=== PATIENT | female | born 1955 | race Caucasian/White ===

== ENCOUNTER → 2021-08-13 12:59 | Outpatient (CLI) | payer MEDICARE, SELFPAY ==
--- NOTE | ~2021-08-13 | US_ITS ---
EXAMINATION: US thyroid DATE: 08/13/2021 13:17 INDICATION: Nontoxic single thyroid nodule. TECHNIQUE: Multiple ultrasound images of the thyroid were obtained. COMPARISON: None. FINDINGS: The right thyroid lobe measures 4.4 x 1.2 x 1.2 cm. The left thyroid lobe measures 3.6 x 0.9 x 1.0 c m. In the left thyroid lobe, there is a 3 mm nodule. In the right thyroid lobe, there is a 10 mm cindy d, hypoechoic, hcmsd-jwak-htsh than tall nodule with smooth margin without echogenic foci (TI-RADS TR 4). In the right thyroid lobe, there is a 4 mm nodule. IMPRESSION: 1. Thyroid nodules. The patient reports a history of a benign thyroid nodule biopsy. Given this histo ry, follow-up is likely not needed. Reviewed, dictated and finalized at location A. IMPRESSION: 1. Thyroid nodules. The patient reports a history of a benign thyroid nodule bi opsy. Given this history, follow-up is likely not needed.
== END ==
PROVIDERS: PCP Family Medicine Adolescent Medicine; Visit Provider Family Medicine Adolescent Medicine
DX: E04.1 Nontoxic single thyroid nodule (principal)
CPT/HCPCS: 76536

== ENCOUNTER 2021-11-17 09:32 | Outpatient (CLI) | payer MEDICARE, SELFPAY ==
--- NOTE | ~2021-11-17 | MM_ITS ---
EXAMINATION: MM screening [facility] BI w leonela HISTORY: Screening TECHNIQUE: Craniocaudal and mediolateral oblique 3-D tomosynthesis images were obtained and synthetic 2-D images were generated. CAD analysis was submitted and interpreted. COMPARISON: 07/18/2018 BREAST PARENCHYMAL COMPOSITION: There are scattered areas of fibroglandular density. FINDINGS: The right breast is stable without evidence for malignancy. There is a developing 7 mm mass in the lower central aspect of the left breast. The right breast is stable without evidence for parisa gnancy. IMPRESSION: 1. New left breast mass, lower central aspect. 2. Additional mammographic views and possible breast ultrasound are recommended. BI-RADS Category 0: Incomplete: Needs additional imaging evaluation. Reviewed, dictated and finalized at location A. IMPRESSION: 1. New left breast mass, lower central aspect. 2. Additional mammographic views and possible breast ultrasound are recommended . BI-RADS Category 0: Incomplete: Needs additional imaging evaluation.
== END 2021-11-17 09:33 | disposition home or self-care (01) ==
LOC: ANHIMG 09:34
PROVIDERS: PCP Family Medicine Adolescent Medicine; Visit Provider Family Medicine Adolescent Medicine
DX: Z12.31 Encounter for screening mammogram for malignant neoplasm of breast (principal); R92.8 Other abnormal and inconclusive findings on diagnostic imaging of breast
CPT/HCPCS: 77063; 77067

== ENCOUNTER 2021-11-24 01:17 | Day surgery (SDC) | payer MEDICARE, SELFPAY ==
[2021-11-10 14:44] VITALS: BMI 28.5
[2021-11-24 07:10] VITALS: BP 139/71; PULSE 79; RESP 20; TEMP 36.2; O2SAT 98; BMI 28.5
[2021-11-24] MEDS: LACTATED RINGERS 1,000 ML 150 ML IV CONT (07:14)
--- NOTE | 2021-11-24 07:25 | PM.IMHP ---
H&P: HPI History of Present Illness Date/Time: 11/24/21 07:25 Chief Complaint: Neoplasia screening. Narrative: This is a 66-year-old white female patient presents for screening colonoscopy. Patient states her current weight appetite and bowel movements are normal. She denies abdominal pain. She has had no bleeding. Family history is noncontributory. Patient's last colonoscopy 2011 we will field benign hyperplastic colon polyp. Review of Systems Review of Systems: Review of systems noncontributory. [facility] Past Medical History Medical History (Updated 11/24/21 @ 07:27 by Juan Diaz MD) Abnormal colonoscopy 06/06 polyps Surgical History Surgical History (Updated 04/21/21 @ 10:07 by Miguel Mccrary MD) History of cholecystectomy 2007 History of thyroid surgery Removal of benign nodule in Social History Social History (Updated 04/21/21 @ 09:39 by Tessa Persaud MA) Smoking status: Never smoker Second hand tobacco smoke exposure: No Alcohol intake: current Drinks per week: 2 Substance use: never Substance use type: does not use Living arrangements: with family Gender identity (if verbalized by the patient): Female Sexual Orientation (if Verbalized by the Patient): Straight or Heterosexual Spiritual care concerns: No Agree to blood products: Yes Meds Home Medications and Allergies Allergies Allergy/AdvReac Type Severity Reaction Status Date / Time No Known Allergies Allergy Unknown Verified 11/24/21 07:09 Vital Signs Vital Signs - 24 hr 11/24/21 07:10 Temperature 97.2 F L Pulse Rate 79 Respiratory Rate 20 Blood Pressure 139/71 Pulse Oximetry 98 Oxygen Delivery Room Air Exam Narrative: Physical exam reveals patient to be alert. Vital signs stable. HEENT exam is unremarkable. Patient is anicteric. Lungs are clear to auscultation and percussion. Heart is without murmur or extra sounds. Abdominal exam bowel sounds present soft nontender with no organomegaly. Digital external rectal exam is normal. Assessment and Plan Assessment and plan (1) Encounter for screening colonoscopy: Code(s): Z12.11 - Encounter for screening for malignant neoplasm of colon Status: Acute Assessment and Plan: Patient presents today for screening colonoscopy. She appears to be at average risk for colon polyps.
--- NOTE | 2021-11-24 08:34 | P.PNAN_ITS ---
Anes - Initial Pre Proc Eval Procedure: Operation Date: 11/24/21 08:30 Proposed Procedures p Screening Colonoscopy - Juan Diaz MD Date/Time: 11/24/21 08:34 Surgeon: Juan Diaz MD Pre Op Diagnosis: neoplasm screening Patient Data Age: 66 Gender: F Height: 1.6 m Weight: 73 kg Last Vital Signs Temp 97.2 F L 11/24/21 07:10 Pulse 79 11/24/21 07:10 Resp 20 11/24/21 07:10 BP 139/71 11/24/21 07:10 Pulse Ox 98 11/24/21 07:10 O2 Del Method Room Air 11/24/21 07:10 Allergies Allergy/AdvReac Type Severity Reaction Status Date / Time No Known Allergies Allergy Unknown Verified 11/24/21 07:09 Patient hx anesthesia problems: none Family hx anesthesia problems: none Results Review: All pre-operative results and documents have been reviewed as part of the pre- operative evaluation. [facility] Past Medical History Medical History (Updated 11/24/21 @ 07:27 by Juan Diaz MD) Abnormal colonoscopy 06/06 polyps Surgical History Surgical History (Updated 04/21/21 @ 10:07 by Miguel Mccrary MD) History of cholecystectomy 2007 History of thyroid surgery Removal of benign nodule in Social History Social History (Updated 04/21/21 @ 09:39 by Tessa Persaud MA) Smoking status: Never smoker Second hand tobacco smoke exposure: No Alcohol intake: current Drinks per week: 2 Substance use: never Substance use type: does not use Living arrangements: with family Gender identity (if verbalized by the patient): Female Sexual Orientation (if Verbalized by the Patient): Straight or Heterosexual Spiritual care concerns: No Agree to blood products: Yes Anes - Eval Final PreProcedure Day of Procedure 11/24/21 08:34 Patient weight: overweight Heart: regular rate and rhythm Lungs: clear to auscultation Airway: Mallampati scale class II Neurological: alert and oriented Last oral intake: >/= 8 hours ASA classification: II Emergent: no Anesthetic plan: proceed Anesthesia type and monitoring: general GIVS and standard monitoring Results Review: All pre-operative results and documents have been reviewed as part of the pre- operative evaluation. Informed Consent: The patient's anesthetic plan and its attendant risks and benefits were discussed with the patient/family/POA. Questions were solicited and answers provided to the satisfaction of the patient/family/POA.
[2021-11-24] MEDS: SIMETHICONE ORAL SUSPENSION 20 MG/0.3 ML 30 ML BOTTLE 0.6 ML IRRIGATION (09:07)
[2021-11-24 09:20] VITALS: BP 132/69; PULSE 73; RESP 18; O2SAT 99
[2021-11-24 09:30] VITALS: BP 136/87; PULSE 74; RESP 16; O2SAT 99
[2021-11-24 09:40] VITALS: BP 131/76; PULSE 68; RESP 17; O2SAT 100
== END 2021-11-24 09:45 | disposition home or self-care (01) ==
PROVIDERS: PCP Family Medicine Adolescent Medicine; Visit Provider Internal Medicine Gastroenterology
PROC: 0DJD8ZZ Inspection of Lower Intestinal Tract, Via Natural or Artificial Opening Endoscopic (ICD-10-PCS; CPT 45378; principal; 2021-11-24 08:30)
DX: Z12.11 Encounter for screening for malignant neoplasm of colon (principal); K64.8 Other hemorrhoids; K57.30 Diverticulosis of large intestine without perforation or abscess without bleeding; K63.5 Polyp of colon; Z90.49 Acquired absence of other specified parts of digestive tract
CPT/HCPCS: 45385; 88305; J2704; J7120

== ENCOUNTER 2021-12-01 13:13 | Outpatient (CLI) | payer MEDICARE, SELFPAY ==
--- NOTE | ~2021-12-01 | MMUS_ITS ---
EXAMINATION: MM diagnostic nuno LT w leonela, US breast LT limited HISTORY: TECHNIQUE: Additional 3-D tomosynthesis images of were performed and synthetic 2-D images were genera binta. CAD analysis was submitted and interpreted. High resolution breast ultrasound was performed. COMPARISON: None FINDINGS: MAMMOGRAPHIC FINDINGS: 7 mm circumscribed opacity is noted in the lower mid left breast (craniocaudal spot leonela image 13/79) . ULTRASOUND: .. 6:00: Approximately 5 mm septated cyst, without internal vascularity or posterior shadowing 4:00: 13 x 5 x 11 mm circumscribed parallel hyperechoic lesion consistent with small lipoma. No suspicious mass or shadowing is detected. IMPRESSION: 1. Benign findings 2. Routine annual mammographic screening is recommended BI-RADS Category 2: Benign finding(s). Reviewed, dictated and finalized at location A. IMPRESSION: 1. Benign findings 2. Routine annual mammographic screening is recommended BI-RADS Category 2: Benign finding(s).
== END 2021-12-01 13:14 | disposition home or self-care (01) ==
PROVIDERS: PCP Family Medicine Adolescent Medicine; Visit Provider Family Medicine Adolescent Medicine
DX: R92.8 Other abnormal and inconclusive findings on diagnostic imaging of breast (principal)
CPT/HCPCS: 76642; 77061; 77065; G0279

== ENCOUNTER 2022-01-19 17:03 | Emergency (ER) | payer MEDICARE, SELFPAY ==
--- NOTE | ~2022-01-19 | XR_ITS ---
XR toe 5th LT min 2V DATE: 01/19/2022 17:16 INDICATION: Stubbed toe TECHNIQUE: 3 views COMPARISON: None FINDINGS: There is a comminuted intraarticular fracture of the head and neck of the proximal phalanx, without significant displacement or angulation. Plantar calcaneal enthesopathy. IMPRESSION: Comminuted intraarticular fracture of head and neck of proximal phalanx Reviewed, dictated and finalized at location A. IMPRESSION: Comminuted intraarticular fracture of head and neck of proximal pha lanx
--- NOTE | 2022-01-19 17:06 | ED.LOWEXIN ---
HPI - Extremity Injury (Lower) General Chief Complaint: Extremity Injury, Lower Stated Complaint: lt foot pinky toe injury Time Seen by Provider: 01/19/22 17:06 Source: patient and RN notes reviewed History of Present Illness HPI Narrative: Patient is a 66-year-old female who presents to urgent care with complaints of left pinky toe pain after stepping on her bed frame this evening approximately 1 hour prior to arrival. Patient has not taken anything for her pain. Patient states the pain is worse with ambulation and weight-bearing. No other acute complaints. No acute distress noted. Patient aware of the plan of care. Some parts of this dictation were generated by voice recognition software and may contain typographical and/or grammatical inaccuracies. Related Data Home Medications Medication Instructions Recorded Confirmed No Home Medications 12/24/21 12/24/21 Allergies Allergy/AdvReac Type Severity Reaction Status Date / Time No Known Allergies Allergy Unknown Verified 11/24/21 07:09 Review of Systems Review of Systems: CONSTITUTIONAL: Denies fever, chills, or sweats. EYES: Denies visual changes, redness, or discharge. ENT: Denies rhinorrhea, congestion, sore throat, or otalgia. CARDIOVASCULAR: Denies chest pain, palpitations, or edema. RESPIRATORY: Denies cough or dyspnea. GASTROINTESTINAL: Denies abdominal pain, nausea, vomiting, or diarrhea. GENITOURINARY: Denies dysuria or hematuria. SKIN: Denies rash or itching. MUSCULOSKELETAL: Reports pain and swelling to the left pinky toe NEUROLOGIC: Denies headache, numbness, or weakness. All other systems reviewed are negative, except as documented in HPI. [facility] Past Medical History Medical History Abnormal colonoscopy 06/06 polyps Surgical History Surgical History History of cholecystectomy 2008 History of thyroid surgery Removal of benign nodule in Family History Family History Mother Rheumatoid arthritis Social History Social History Smoking status: Never smoker Second hand tobacco smoke exposure: No Alcohol intake: current Drinks per week: 2 Substance use: never Substance use type: does not use Gender identity (if verbalized by the patient): Female Sexual Orientation (if Verbalized by the Patient): Straight or Heterosexual Spiritual care concerns: No Agree to blood products: Yes Comments At the time of my signature, I reviewed and agree with the nursing past medical, surgical, social, and family history. There is no relevant family history pertinent to the patient complaint. Exam Narrative: GENERAL: This is a well-nourished, well-developed patient, in no apparent distress. HEAD: normocephalic, atraumatic. EYES: PERRL. Sclera clear/white. Vision is grossly intact. EARS: External ears normal NOSE: External nose normal with no obvious nasal discharge, nares without redness, no rhinorrhea. THROAT: Mucous membranes moist NECK: Neck supple SKIN: warm, intact with no suspicious lesions or rash, good texture and turgor. NEURO: awake, alert, and oriented to person, place and time. There were no obvious focal neurologic abnormalities. EXTREMITIES: Mild erythema and edema noted to the left stat toe with moderate tenderness. No obvious deformity to left lower extremity. Passive strong pedal pulses capillary refill less than 2 seconds. Range of motion left lower extremity within normal limits. Course Course Level of Care: Express Care Visit Vital Signs Vital signs: Vital Signs Temperature 99.1 F 01/19/22 17:10 Pulse Rate 84 01/19/22 17:10 Respiratory Rate 16 01/19/22 17:10 Blood Pressure 155/78 H 01/19/22 17:10 Pulse Oximetry 99 01/19/22 17:10 Oxygen Delivery Room Air 01/19/22 17:10 Temperature 99.1 F 01/19/22
[2022-01-19 17:10] VITALS: BP 155/78; PULSE 84; RESP 16; TEMP 37.3; O2SAT 99
== END 2022-01-19 17:38 | disposition home or self-care (01) ==
PROVIDERS: Emergency Provider Nurse Practitioner Family; PCP Family Medicine Adolescent Medicine
DX: S92.515A Nondisplaced fracture of proximal phalanx of left lesser toe(s), initial encounter for closed fracture (principal); W22.03XA Walked into furniture, initial encounter
CPT/HCPCS: 73660; 99214; G0463

== ENCOUNTER 2023-06-06 09:01 | Outpatient (CLI) | payer MEDICARE, SELFPAY ==
--- NOTE | ~2023-06-06 | MM_ITS ---
EXAMINATION: MM screening [facility] BI w leonela HISTORY: Screening mammogram TECHNIQUE: Craniocaudal and mediolateral oblique 3-D tomosynthesis images were obtained and synthetic 2-D images were generated. CAD analysis was submitted and interpreted. COMPARISON: 12/01/2021, 11/17/2021, 07/18/2018 BREAST PARENCHYMAL COMPOSITION:Not Dense. There are scattered areas of fibroglandular density. FINDINGS: No suspicious mass, calcification, or architectural distortion are identified in either edwige ast to suggest malignancy. There has been no suspicious interval change. IMPRESSION: No mammographic evidence of malignancy. Recommend routine screening mammography in one year. BI-RADS Category 1: Negative Reviewed, dictated and finalized at location .
== END 2023-06-06 09:02 | disposition home or self-care (01) ==
LOC: ANHIMG 09:04
PROVIDERS: PCP Family Medicine Adolescent Medicine; Visit Provider Family Medicine Adolescent Medicine
DX: Z12.31 Encounter for screening mammogram for malignant neoplasm of breast (principal)
CPT/HCPCS: 77063; 77067

== ENCOUNTER 2024-07-24 09:10 | Outpatient (CLI) | payer MEDICARE, SELFPAY ==
--- NOTE | ~2024-07-24 | US_ITS ---
US abdomen limited INDICATION: Liver disease. Liver cyst. PROCEDURE: Realtime right upper abdominal ultrasound. COMPARISON: No prior studies for comparison. FINDINGS: The pancreas is normal without focal mass or pancreatic ductal dilation. Liver echotexture is increased, consistent with fatty infiltration. There is normal directional flow in the portal ve in. There are multiple liver cysts, largest measuring 6.5 cm. IMPRESSION: 1: Liver cysts, largest measuring 6.5 cm. 2: Fatty infiltration of the liver. Reviewed, dictated and finalized at location A.
--- NOTE | ~2024-07-24 | US_ITS ---
EXAMINATION: US thyroid DATE: 07/24/2024 09:33 INDICATION: Nontoxic single thyroid nodule TECHNIQUE: Multiple ultrasound images of the thyroid were obtained. COMPARISON: 08/13/2021 FINDINGS: The right thyroid lobe measures 4.1 x 1.4 x 1.0 cm. The left thyroid lobe measures 3.6 x 1.1 x 0.9 c m. No change in size of a 1.0 cm nodule at the superior right thyroid lobe which is wider than tall with smooth margins but now appears distinctly spongiform with posterior acoustic enhancement (TI-RAD S 1, benign, no FNA recommended). There are a couple 6 mm solid wider than tall hypoechoic nodules in both the left and right thyroid lobes which are without echogenic foci and with smooth margins (TI-R ADS 4, moderately suspicious , FNA if >=1.5 cm, annual followup is >=1 cm). There is normal echotextu re, echogenicity and vascular flow throughout the surrounding thyroid gland. IMPRESSION: 1. Small bilateral thyroid nodules, none meeting criteria for either biopsy or follow-up. Reviewed, dictated and finalized at location B.
== END 2024-07-24 09:11 | disposition home or self-care (01) ==
LOC: MICIMG 09:11
PROVIDERS: PCP Family Medicine Adolescent Medicine; Visit Provider Family Medicine
DX: K76.89 Other specified diseases of liver (principal); E04.2 Nontoxic multinodular goiter
CPT/HCPCS: 76536; 76705

== ENCOUNTER 2024-07-27 09:57 | Outpatient (CLI) | payer MEDICARE, SELFPAY ==
--- NOTE | ~2024-07-27 | CT_ITS ---
Clinical Indication: Abnormal findings of blood chemistry CT Scan of the Chest with Contrast: Technique: Contiguous sections were acquired throughout the chest after intravenous administration of 100 cc of Omnipaque 350. Dose reduction technique was used on this scan by utilizing automated expos ure control and iterative reconstruction technique. The dose-length product (DLP) was 341.02 mGy-cm. Findings: There is no evidence of any significant mediastinal, hilar or axillary lymphadenopathy. There is no f illing defect in the pulmonary arterial tree to suggest pulmonary embolus. There is no evidence of ao rtic dissection or aneurysm. There is no evidence of pleural or pericardial effusion. The lungs are clear. No pulmonary nodules or infiltrates are noted. Images through the upper abdomen reveal no abnormalities. Impression: No evidence of pulmonary embolus, aortic dissection, or aortic aneurysm. Clear lungs. Reviewed, dictated and finalized at [facility]. Impression: No evidence of pulmonary embolus, aortic dissection, or aortic aneurysm. Clear lungs.
--- OUTSIDE RECORDS SUMMARY | 2024-07-28 11:42 | XMS_ITS | Clinical Summary ---
Author Organization [facility] Address [address] [address] Care Team Providers Care Men'S Locker Room Attendant Name Role Phone Miguel Mccrary MD Primary Care Provider + Source Comments [facility],non-owned Affiliates and Associated Physician Practices is amultiple site organization consisting of ambulatory clinics and hospital sitesin [place], [place], [place] and [place]. This disclosure is being madepursuant to the Care Everywhere program and may not contain all information available regarding this patient. Last updated 17[employer] [facility] Allergies No known active allergies Medications * Be aware that medications may not be up to date on this document. Alwaysverify current medications with the patient. No known medications Social History Tobacco Use Types Packs/Day Years Used Date Smoking Tobacco: Never Smokeless Tobacco: Never Comments Unknown Sex and Gender Information Value Date Recorded Sex Assigned at Not on file Legal Sex Female 8:06 AM ASSOCIATE FIELD SERVICE ENGINEER Gender Identity Not on file Sexual Orientation Not on file Last Filed Vital Signs Vital Sign Reading Time Taken Comments Blood Pressure 122/74 03/16/2017 6:22 PM ASSOCIATE FIELD SERVICE ENGINEER Pulse 86 03/16/2017 6:22 PM ASSOCIATE FIELD SERVICE ENGINEER Temperature 36.8 C (98.3 F) 03/16/2017 6:22 PM ASSOCIATE FIELD SERVICE ENGINEER Respiratory Rate 16 03/16/2017 6:22 PM ASSOCIATE FIELD SERVICE ENGINEER Oxygen Saturation 99% 03/16/2017 6:22 PM ASSOCIATE FIELD SERVICE ENGINEER Inhaled Oxygen Concentration - - Weight 70.8 kg (156 lb) 03/16/2017 6:22 PM ASSOCIATE FIELD SERVICE ENGINEER Height 162.6 cm (5' 4 ) 03/16/2017 6:22 PM ASSOCIATE FIELD SERVICE ENGINEER Body Mass Index 26.78 03/16/2017 6:22 PM ASSOCIATE FIELD SERVICE ENGINEER Plan of Treatment Health Maintenance Due Date Last Done Comments BONE DENSITY TESTING 1954 COLOGUARD (AGES 45-75) - COL ON CA SCREENING 1954 COLON MONITORING 1954 COLONOSCOPY - COLON CA SCREENING 1954 CT COLONOGRAPHY - COLON CA SCREENING 1954 Colorectal Cancer Screening 1954 FIT - COLON CA SCREENING 1954 FLEX SIG - COLON CA SCREENING 1954 LIPID TESTING 1954 MAMMOGRAM 1954 HEPATITIS C SCREENING 06/21/1972 DTAP/TDAP/TD VACCINES (1 - Tdap) 1973 PNEUMOCOCCAL VACCINE 50+ (1 of 1 - PCV) 2004 ZOSTER VACCINE (1 of 2) 2004 SCREENING FOR DIABETES 03/16/2017 COVID-19 VACCINE ( - 2023-2 5 season) 2023 DEPRESSION SCREENING 03/28/2024 INFLUENZA VACCINE (Season Ended) 2024 Respiratory Syncytial Virus (RSV) Vaccine Pt: or over 60 yrs (1 - 1-dose 75+ series) 2029 HEPATITIS B VACCINE Aged Out No longe r eligible based on patient's age to complete this topic HIB VACCINE Aged Out No longer eligi ble based on patient's age to complete this topic HPV VACCINE Aged Out No longer eligi ble based on patient's age to complete this topic MENINGOCOCCAL (Group B) VACC INE SHARED DECISION-MAKING Aged Out No longer eligibl e based on patient's age to complete this topic MENINGOCOCCAL GROUPS A/C/Y/W VACCINE Aged Out No longer eligible b ased on patient's age to complete this topic Insurance [employer] Care Teams Men'S Locker Room Attendant Relationship Specialty Start Date End Date Miguel Mccrary MD [id number] [facility] [address] [place] [address] PCP - General Family Medicine 03/16/17
== END 2024-07-27 09:58 | disposition home or self-care (01) ==
PROVIDERS: PCP Family Medicine Adolescent Medicine; Visit Provider Family Medicine
DX: R79.89 Other specified abnormal findings of blood chemistry (principal); R06.02 Shortness of breath
CPT/HCPCS: 71275; Q9967

== ENCOUNTER 2024-08-27 14:48 | Outpatient (CLI) | payer MEDICARE, SELFPAY ==
--- NOTE | ~2024-08-27 | MM_ITS ---
EXAMINATION: screening [facility] BI w leonela INDICATION: Asymptomatic, referred for screening mammogram COMPARISON: 06/06/2023 TECHNIQUE: Digital breast tomosynthesis craniocaudal and mediolateral oblique views of Both breasts w ere obtained with computer-aided detection to assist in interpretation of the study. FINDINGS: There are scattered areas of fibroglandular density. No focal dominant mass, architectural distortion, or suspicious microcalcifications are identified. There are no features to suggest malignancy. IMPRESSION: No evidence of malignancy in the breast. Recommend continued screening mammography BI-RADS 1, NEGATIVE Reviewed, dictated and finalized at location B.
--- OUTSIDE RECORDS SUMMARY | 2024-08-27 15:03 | XMS_ITS | Clinical Summary ---
Author Organization [facility] Address [address] [place] [address] Care Team Providers Care Physician Relations Specialist Name Role Phone Miguel Mccrary MD Primary Care Provider + Source Comments [facility],non-owned Affiliates and Associated Physician Practices is amultiple site organization consisting of ambulatory clinics and hospital sitesin [place], [place], [place] and [place]. This disclosure is being madepursuant to the Care Everywhere program and may not contain all information available regarding this patient. Last updated [email or web address] [facility] Allergies No known active allergies Medications * [...] on file Legal Sex Female 8:06 AM FILLING HAND Gender Identity Not on file Sexual Orientation Not on file Last Filed Vital Signs Vital Sign Reading Time Taken Comments Blood Pressure 122/74 03/16/2017 6:22 PM FILLING HAND Pulse 86 03/16/2017 6:22 PM FILLING HAND Temperature 36.8 C (98.3 F) 03/16/2017 6:22 PM FILLING HAND Respiratory Rate 16 03/16/2017 6:22 PM FILLING HAND Oxygen Saturation 99% 03/16/2017 6:22 PM FILLING HAND Inhaled Oxygen Concentration - - Weight 70.8 kg (156 lb) 03/16/2017 6:22 PM FILLING HAND Height 162.6 cm (5' 4) 03/16/2017 6:22 PM FILLING HAND Body Mass Index 26.78 03/16/2017 6:22 PM FILLING HAND Plan of Treatment Health Maintenance Due Date [...] this topic Insurance JULIANE [employer] Care Teams Physician Relations Specialist Relationship Specialty Start Date End Date Miguel Mccrary MD [address] [facility] [address] [place] [address] PCP - General Family Medicine 03/16/17
== END 2024-08-27 14:49 | disposition home or self-care (01) ==
PROVIDERS: PCP Family Medicine Adolescent Medicine; Visit Provider Family Medicine Adolescent Medicine
DX: Z12.31 Encounter for screening mammogram for malignant neoplasm of breast (principal)
CPT/HCPCS: 77063; 77067